=== PATIENT | male | born 1965 | race Caucasian/White ===

== ENCOUNTER → 2022-02-07 10:53 | Outpatient (CLI) | payer OTHER, SELFPAY ==
--- NOTE | 2022-02-07 10:55 | DI.RAD.S_ITS ---
PROCEDURE: XR LUMBAR SPINE MIN 4V INDICATIONS: BACK PAIN TECHNIQUE: 5 views of the lumbar spine were acquired, including bilateral oblique views. COMPARISON: [facility], MR, MR LUMBAR SPINE WITHOUT CONTRAST, 11/08/2021, 9:42. FINDINGS: Bones: 5 nonrib-bearing vertebrae are present. There is normal bony alignment. No vertebral body compression fractures. No suspicious bony lesions. Set hypertrophy throughout the mid Soft tissues: Overlying bowel gas pattern is normal. No suspicious soft tissue calcifications. IMPRESSION: Multilevel degenerative disc and facet disease. No acute fracture. No osseous lesion. If symptoms and/or clinical suspicion for pathology persist, further assessment with repeat, or advanced imaging (e.g., CT, MRI, or bone scan) may be helpful for further assessment. Dictated by: Sho Santana M.D. on 02/07/2022 at 13:33 Approved by: Sho Santana M.D. on 02/07/2022 at 13:34
== END ==
PROVIDERS: Family Provider Family Medicine; PCP Family Medicine; Referring Provider Physical Medicine & Rehabilitation; Visit Provider Physical Medicine & Rehabilitation
DX: M51.36 Other intervertebral disc degeneration, lumbar region (principal); M54.9 Dorsalgia, unspecified
CPT/HCPCS: 72110

== ENCOUNTER 2022-02-13 08:10 | Outpatient (CLI) | payer OTHER, SELFPAY ==
[2022-02-13] VITALS (8 sets, daily range): BP systolic 129–153; BP diastolic 84–99; PULSE 57–72; RESP 11–20; TEMP 37; O2SAT 98–100
--- NOTE | 2022-02-13 08:11 | DI.RAD.S_ITS ---
PROCEDURE: PAIN L/S TRANSFORAM INJECT MARK COMPARISON: None. INDICATIONS: SPONDYLOSIS FINDINGS: Access needle tips at the bilateral L4-L5 neural foramina. Injection of small amount of iodinated contrast material through the axis needle demonstrates position of the tips in extra thecal space. IMPRESSION: Access needle tips at bilateral L4-L5 neural foramina for transforaminal epidural steroid injection. Dictated by: Daphne Mccoy MD, PhD on 02/13/2022 at 11:48 Approved by: Daphne Mccoy MD, PhD on 02/13/2022 at 11:50
[2022-02-13 08:41] LABS: COVID19 -Nasal RAPID Negative (Negative)
[2022-02-13] MEDS: MIDAZOLAM 2 MG/2 ML VIAL IV (09:30)
[2022-02-13] MEDS: IOPAMIDOL 15 ML VIAL 3 ML INJ (09:35)
[2022-02-13] MEDS: BETAMETHASONE 30 MG/5 ML MDV 6 MG INJ (09:35)
[2022-02-13] MEDS: BUPIVACAINE 0.25% (PF) VIAL 2 ML INJ (09:35)
[2022-02-13] MEDS: DEXAMETHASONE 10 MG/ML VIAL 20 MG INJ (09:36)
--- NOTE | 2022-02-13 09:53 | PM.PROC.IR.1 ---
Date/Time/Diagnoses Date of procedure: 02/13/22 Time of procedure: 09:53 Pre-procedure diagnosis: 1. FORAMINAL STENOSIS WITH LE SYMPTOMS Procedure Notes Procedure: 1. FLUOROSCOPICALLY GUIDED CONTRAST CONTROLLED TRANSFORAMINAL EPIDURAL STEROID INJECTION - BILATERAL L4/5 TFESI Indications: Anam is referred by Dr. Mallory for treatment of Foraminal Stenosis with bilateral LE Symptoms Physician: Vu Thorpe Total Fluoroscopy time (seconds): 17 Total sedation minutes: 17 Complications: none Procedure in detail & Post-procedure care: FINDINGS Foraminal Nerve Root Compression secondary to disc disease and facet hypertrophy DESCRIPTION OF PROCEDURE Following review of allergy and review of potential side effects and complications, including, but not necessarily limited to, infection, allergic reaction, local tissue breakdown, stroke, temporary or permanent nerve injury, paralysis, and possible , the patient indicated that the patient understood and agreed to proceed. An informed consent document was signed by the patient, witnessed by a nurse, and placed in the patient's chart. Additionally, other treatment options including medications, modalities, and physical therapy were reviewed with the patient. After review of previous anaesthesic history and IV conscious sedation the patient was deemed safe to proceed with today?s procedure with IV conscious sedation as ASA class II designation. Safety time-out was performed to confirm patient ID, procedure to be performed and site of procedure. IV sedation was accomplished with a combination of 2mg of Versed was administered by the RN after DO order, titrated to patient comfort during the course of the procedure while the patient remained responsive to all verbal commands In the prone position following sterile prep and drape of the lumbar region, the right L4/5 posterior neuroforamen was identified fluoroscopically. The skin was anesthetized via a 25-gauge 1.5-inch needle with 1% lidocaine solution. At this point, a 25-gauge 3.5-inch spinal needle was atraumatically introduced and advanced under fluoroscopic guidance through the posterior right L4/5 neuroforamen to approximately the anterior aspect of the canal. Depth was confirmed on lateral view. Following negative aspiration, injection of approximately 1.5cc of Isovue 200 under live fluoroscopy in the AP view confirmed excellent flow along the nerve root, into the epidural space without vascular or intrathecal uptake observed Radiological data, including multiple fluoroscopic views of the lumbosacral spine, reveal a spinal needle at the right L4/5 posterior neuroforamen. Subsequent views show flow of contrast material flowing superiorly and inferiorly along the nerve root confirming epidural flow. Subsequently, a test dose of 1.5cc of 1% lidocaine solution was administered and patient was observed for two minutes for signs or symptoms of complications, including abdominal pain, shortness of breath, bilateral upper or lower extremity weakness, nausea and vomiting, prior to steroid injection. At this point, a total of 3cc or 20mg of dexamethasone and 6mg betamethasone was injected without incident. Attention was then refocused to the left L4/5 level where the identical procedure was replicated. The procedure tolerated the procedure well without signs or symptoms of complications prior to transfer to the recovery area continued monitoring without incident. The patient was then transferred to the recovery area where they were observed for an appropriate time after the injection. The patient reported a VAS score of 7 prior to the procedure and a post-procedure VAS of 0. POST OP INSTRUCTIONS The patient was provided a Pain Log to continue to record their response to the target-specific procedure prior to follow-up visit with their referring physician. Additionally, specific post-injection care instructions and a contact number to our office were provided if concerns arise regarding possible complications associated with the procedure are suspected.
== END 2022-02-13 10:10 | disposition home or self-care (01) ==
LOC: RAD 08:11
PROVIDERS: Family Provider Family Medicine; PCP Family Medicine; Referring Provider Physical Medicine & Rehabilitation; Visit Provider Physical Medicine & Rehabilitation
DX: M48.061 Spinal stenosis, lumbar region without neurogenic claudication (principal); M51.16 Intervertebral disc disorders with radiculopathy, lumbar region; Z20.822 Contact with and (suspected) exposure to COVID-19
CPT/HCPCS: 64483; 87635; 99152; J0702; J1100; J2250

== ENCOUNTER 2022-07-31 08:15 | Outpatient (CLI) | payer OTHER, SELFPAY ==
[2022-07-31] VITALS (8 sets, daily range): BP systolic 120–132; BP diastolic 76–100; PULSE 75–88; RESP 11–20; TEMP 36.8; O2SAT 95–99
--- NOTE | 2022-07-31 09:00 | DI.RAD.S_ITS ---
PROCEDURE: PAIN L/S FACET INJ/BLK 1ST MARK COMPARISON: None. INDICATIONS: SPONDYLOSIS FINDINGS: Fluoroscopic images demonstrating bilateral needle placement at L3, L4 and L5 with contrast injection is noted. No visualized fractures. IMPRESSION: Needle placement as above. Dictated by: Payal Meade M.D. on 07/31/2022 at 13:12 Approved by: Payal Meade M.D. on 07/31/2022 at 13:13
[2022-07-31] MEDS: MIDAZOLAM 2 MG/2 ML VIAL IV (09:16)
[2022-07-31] MEDS: LIDOCAINE 1% 20 ML 5 ML INJ (09:19)
[2022-07-31] MEDS: IOPAMIDOL 15 ML VIAL 3 ML INJ (09:19)
[2022-07-31] MEDS: BUPIVACAINE 0.5% MDV 5 ML SUBCUT (09:20)
--- NOTE | 2022-07-31 09:32 | PM.PROC.IR.1 ---
Date/Time/Diagnoses Date of procedure: 07/31/22 Time of procedure: 09:32 Pre-procedure diagnosis: FACET ARTHROPATHY Post-procedure diagnosis: same Procedure Notes Procedure: 1. BILATERAL L3, L4 AND L5 DIAGNOSTIC MB BLOCKS Indications: Anam is referred by Dr. Mallory for treatment of Bilateral Axial LBP. Physician: Vu Thorpe Total Fluoroscopy time (seconds): 12 Total sedation minutes: 13 Complications: none Procedure in detail & Post-procedure care: DESCRIPTION OF PROCEDURE Fluoroscopically guided, contrast-controlled bilateral L3, L4 AND L5 medial branch blocks with 0.5cc of 0.5% Marcaine. Following review of allergy and review of potential side effects and complications, including, but not necessarily limited to, infection, allergic reaction, local tissue breakdown, nerve injury, paralysis, stroke and possible , the patient indicated that the patient understood and agreed to proceed. An informed consent document was signed by the patient, witnessed by a nurse, and placed in the patient's chart. After review of previous anaesthesic history and IV conscious sedation the patient was deemed safe to proceed with today's procedure with IV conscious sedation as ASA class II designation. Safety time-out was performed to confirm patient ID, procedure to be performed and site of procedure. IV sedation was accomplished with a combination of 2mg of Versed was administered by the RN after DO order, titrated to patient comfort during the course of the procedure while the patient remained responsive to all verbal commands In the prone position, following sterile prep and drape of the lumbar region, the right L3, L4 AND L5 anatomical location of the medial branch of the dorsal ramus was identified fluoroscopically. Subsequently an anesthetic skin wheal using 1% lidocaine solution was initiated at each of the anatomical spots. Subsequently then a 22-gauge 3.5-inch spinal needle was atraumatically introduced and advanced under fluoroscopic guidance at each of the corresponding sites at the right L3, L4 and L5 MB. After negative aspiration, 0.2cc of Isovue 200 was injected, confirming placement without vascular or intrathecal uptake. Subsequently then 0.5cc of 0.5% Marcaine solution was injected at each of the corresponding sites at the right L3, L4 and L5 medial branch locations. The identical procedure was replicated on the left. The patient tolerated the procedure well without signs or symptoms of complications. The patient tolerated the procedure well without signs or symptoms of complications prior to transfer to the recovery area continued monitoring without incident. Post-procedure, the patient was monitored initiating provocative activities to measure the amount of relief from block of the facetogenic pain. The patient reported a VAS of 7 prior to the procedure and a post-procedure VAS of 1. It has been a pleasure to assist in the diagnostic and therapeutic care of your patient. POST OP INSTRUCTIONS The patient was provided with a Pain Log to complete over the next several hours and subsequent days prior to the patient's follow up with the ordering physician. 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 The patient is aware, was provided, once again, with a Pain Log and will follow up with the referring physician for review and clinical correlation
== END 2022-07-31 09:48 | disposition home or self-care (01) ==
LOC: RAD 08:16
PROVIDERS: Family Provider Family Medicine; PCP Family Medicine; Referring Provider Physical Medicine & Rehabilitation; Visit Provider Physical Medicine & Rehabilitation
DX: M47.816 Spondylosis without myelopathy or radiculopathy, lumbar region (principal)
CPT/HCPCS: 64493; 64494; 99152; J2250

== ENCOUNTER 2022-12-04 08:14 | Outpatient (CLI) | payer OTHER, SELFPAY ==
[2022-12-04] VITALS (9 sets, daily range): BP systolic 119–143; BP diastolic 69–92; PULSE 73–86; RESP 12–23; TEMP 37.1; O2SAT 94–99
--- NOTE | 2022-12-04 08:15 | DI.RAD.S_ITS ---
PROCEDURE: PAIN L/S TRANSFORAMINAL INJECT INDICATIONS: SPONDYLOSIS COMPARISON: None. FINDINGS: Fluoroscopic spot filming was performed to verify placement of spinal needles at the L4-5 level(s), as labeled on the films. Appropriate location(s) of the needle tip(s) was confirmed by injection of iodinated contrast. IMPRESSION: Fluoroscopic guidance Approved by: Anam Diaz M.D. on 12/04/2022 at 19:33
[2022-12-04] MEDS: MIDAZOLAM 2 MG/2 ML VIAL IV (08:56)
[2022-12-04] MEDS: DEXAMETHASONE 10 MG/ML VIAL 20 MG INJ (09:01)
[2022-12-04] MEDS: IOPAMIDOL 15 ML VIAL 3 ML INJ (09:01)
[2022-12-04] MEDS: BUPIVACAINE 0.25% (PF) VIAL 2 ML INJ (09:01)
[2022-12-04] MEDS: BETAMETHASONE 30 MG/5 ML MDV 6 MG INJ (09:01)
--- NOTE | 2022-12-04 09:05 | P.PCN_ITS ---
Date/Time/Diagnoses Date of procedure: 12/04/22 Time of procedure: 09:05 Pre-procedure diagnosis: 1. FORAMINAL STENOSIS WITH LE SYMPTOMS Post-procedure diagnosis: same Procedure Notes Procedure: 1. FLUOROSCOPICALLY GUIDED CONTRAST CONTROLLED TRANSFORAMINAL EPIDURAL STEROID INJECTION - LEFT L4/5 Indications: Anam is referred by Dr. Mallory for treatment of Foraminal Stenosis with Left LE Symptoms Physician: Vu Thorpe Total Fluoroscopy time (seconds): 4 Total sedation minutes: 6 Complications: none Procedure in detail & Post-procedure care: FINDINGS Foraminal Nerve Root Compression secondary to disc disease and facet hypertrophy DESCRIPTION OF PROCEDURE Following review of allergy and review of potential side effects and complications, including, but not necessarily limited to, infection, allergic reaction, local tissue breakdown, stroke, temporary or permanent nerve injury, paralysis, and possible , the patient indicated that the patient understood and agreed to proceed. An informed consent document was signed by the patient, witnessed by a nurse, and placed in the patient's chart. Additionally, other treatment options including medications, modalities, and physical therapy were reviewed with the patient. After review of previous anaesthesic history and IV conscious sedation the patient was deemed safe to proceed with today?s procedure with IV conscious sedation as ASA class II designation. Safety time-out was performed to confirm patient ID, procedure to be performed and site of procedure. IV sedation was accomplished with a combination of 2mg of Versed administered by the RN after DO order, titrated to patient comfort during the course of the procedure while the patient remained responsive to all verbal commands In the prone position following sterile prep and drape of the lumbar region, the left L4/5 posterior neuroforamen was identified fluoroscopically. The skin was anesthetized via a 25-gauge 1.5-inch needle with 1% lidocaine solution. At this point, a 25-gauge 3.5-inch spinal needle was atraumatically introduced and advanced under fluoroscopic guidance through the posterior left L4/5 neuroforamen to approximately the anterior aspect of the canal. Depth was confirmed on lateral view. Following negative aspiration, injection of approximately 1.5cc of Isovue 200 under live fluoroscopy in the AP view confirmed excellent flow along the nerve root, into the epidural space without vascular or intrathecal uptake observed Radiological data, including multiple fluoroscopic views of the lumbosacral spine, reveal a spinal needle at the left L4/5 posterior neuroforamen. Subsequent views show flow of contrast material flowing superiorly and inferiorly along the nerve root confirming epidural flow. Subsequently, a test dose of 1.5 cc of 1% lidocaine solution was administered and patient was observed for two minutes for signs or symptoms of complications, including abdominal pain, shortness of breath, bilateral upper or lower extremity weakness, nausea and vomiting, prior to steroid injection. At this point, a total of 3cc or 20mg of dexamethasone and 6mg of betamethasone was injected without incident. The procedure tolerated the procedure well without signs or symptoms of complications prior to transfer to the recovery area continued monitoring without incident. The patient was then transferred to the recovery area where they were observed for an appropriate time after the injection. The patient reported a VAS score of 7 prior to the procedure and a post- procedure VAS of 0. POST OP INSTRUCTIONS The patient was provided a Pain Log to continue to record their response to the target-specific procedure prior to follow-up visit with their referring physician. Additionally, specific post-injection care instructions and a contact number to our office were provided if concerns arise regarding possible complications associated with the procedure are suspected.
== END 2022-12-04 09:33 | disposition home or self-care (01) ==
LOC: RAD 08:14
PROVIDERS: Family Provider Family Medicine; PCP Family Medicine; Referring Provider Physical Medicine & Rehabilitation; Visit Provider Physical Medicine & Rehabilitation
DX: M48.061 Spinal stenosis, lumbar region without neurogenic claudication (principal); M51.16 Intervertebral disc disorders with radiculopathy, lumbar region
CPT/HCPCS: 64483; J0702; J1100; J2250; J3490

== ENCOUNTER 2023-06-30 03:04 | Emergency (ER) | payer OTHER, SELFPAY ==
[2023-06-30 03:05] VITALS: BP 191/112; PULSE 76; RESP 18; TEMP 36.6; O2SAT 97; BMI 32.8
[2023-06-30 03:11] VITALS: PULSE 74; O2SAT 99
--- NOTE | 2023-06-30 03:11 | ED_ITS ---
HPI - Abdominal Pain General Chief Complaint: Abdominal Pain Stated Complaint: gallbladder or appendix pain Time Seen by Provider: 06/30/23 03:10 History of Present Illness HPI narrative: Patient 57-year-old male without significant past medical history presenting today with sudden onset of right-sided back pain. He says it woke him from sleep. It is radiating down to his abdomen. He is felt sweaty and nauseous. He was in his normal state of health earlier today he would a fast food hamburger. He denies any chest pain. No prior history of kidney stones. He is not noted any blood in his urine. He feels constipated at times. Related Data Home Medications Medication Instructions Recorded Confirmed lamotrigine 100 mg tablet 100 mg PO DAILY 02/07/22 10/20/22 rabeprazole 20 mg tablet,delayed tab PO 02/07/22 10/20/22 release clonazepam 0.5 mg tablet 0.5 mg PO BEDTIME PRN 10/20/22 10/20/22 Previous Rx's Medication Instructions Recorded hydrocodone 5 mg-acetaminophen 325 1 tab PO Q6H PRN pain #10 tabs 06/30/23 mg tablet ondansetron 4 mg disintegrating 4 mg PO Q8H PRN nausea and 06/30/23 tablet vomiting #10 tabs Allergies Allergy/AdvReac Type Severity Reaction Status Date / Time codeine Allergy Intermediate Gastrointestinal Verified 10/20/22 08:56 Upset Latex, Natural Rubber Allergy Intermediate Rash Verified 10/20/22 08:56 celecoxib [From Celebrex] AdvReac Mild Anxiety Verified 10/20/22 09:21 Review of Systems Review of Systems ROS Unobtainable: All systems reviewed & are unremarkable except as noted in HPI and below Patient History Medical History Facet arthropathy, lumbar Herniated nucleus pulposus, L4-5 Lumbosacral radiculopathy at L5 Surgical History History of knee surgery Family History Unknown No pertinent family history Social History Smoking Status: Former smoker Smoking Status: Former smoker Exam Initial Vital Signs Initial Vital Signs: Vital Signs Temperature 97.9 F 06/30/23 03:05 Pulse Rate 76 06/30/23 03:05 Respiratory Rate 18 06/30/23 03:05 Blood Pressure 191/112 H 06/30/23 03:05 Pulse Oximetry 97 06/30/23 03:05 Oxygen Delivery Method Room Air 06/30/23 03:05 GENERAL: [Alert 57-year-old male appears comfortable HEENT: Head atraumatic,EOMI, pupils reactive, face symmetric, moist mucous membranes CARDIOVASCULAR: Regular rate and rhythm without murmurs, rubs or gallops. RESPIRATORY: Breath sounds equal bilaterally, no wheezes rales or rhonchi. ABDOMEN: Soft, no right lower quadrant tenderness negative Lucia sign no epigastric pain : Mild right CVA tenderness EXTREMITIES: Normal range of motion, no clubbing or edema. Neurovascularly intact NEUROLOGICAL: Alert and oriented x4.Normal gait and speech. SKIN: Warm, dry, no laceration, no petechiae, no rashes or lesions. Course Orders Ordered: Discontinued Medications Hydrocodone Bitart/Acetaminophen (Hydrocodone/Acet 5/325 Prepack) [facility] Stop: 06/30/23 04:41 Last Admin: 06/30/23 04:45 Dose: 1 bottle Documented By: RITESH Ketorolac Tromethamine (Ketorolac 30 Mg/Ml Vial) 15 mg IV NOW ONE Stop: 06/30/23 03:11 Last Admin: 06/30/23 03:23 Dose: 15 mg Documented By: KIERRA Ondansetron HCl (Ondansetron 4 Mg/2 Ml Inj) 4 mg IV NOW ONE Stop: 06/30/23 03:11 Last Admin: 06/30/23 03:22 Dose: 4 mg Documented By: KIERRA Ondansetron HCl (Ondansetron 4 Mg Odt Prepack) 1 bottle MISC SEEINSTR ONE Stop: 06/30/23 04:41 Last Admin: 06/30/23 04:45 Dose: 1 bottle Documented By: RITESH Ondansetron HCl (Ondansetron 4 Mg/2 Ml Inj) 4 mg IV NOW ONE Stop: 06/30/23 04:41 Last Admin: 06/30/23 04:45 Dose: 4 mg Documented By: RITESH Vital Signs Vital signs: Vital Signs - 8 hr 06/30/23 03:05 06/30/23 03:11 06/30/23 03:30 Temperature 97.9 F Pulse Rate 76 74 Respiratory Rate 18 Blood Pressure 191/112 H 196/126 H Pulse Oximetry 97 99 Oxygen Delivery Method Room Air 06/30/23 03:30 06/30/23 03:36 06/30/23 03:36 Temperature Pulse Rate 74 71 Respiratory Rate Blood Pressure 180/106 H 180/106 H Pulse Oximetry 99 98 Oxygen Delivery Method MDM - Abdominal Pain Lab Data 06/30/23 03:10 06/30/23 03:10 Labs: Lab Results 06/30/23 06/30/23 Range/Units 03:10 03:49 WBC 7.8 (4.5-11.0) X10^3/uL RBC 4.61 (4.5-5.9) X10^6/uL Hgb 13.7 (13.5-17.5) g/dL Hct 39.5 L (41-53) % MCV 85.8 (80-100) fL MCH 29.7 (26-34) PG MCHC 34.6 (30-36) % RDW 13.4 (11.6-14.8) % Plt Count 312 (150-400) X10^3/uL Neut % (Auto) 55.4 (50-75) % Lymph % (Auto) 32.5 (25-40) % Clinch % (Auto) 8.2 (3-14) % Eos % (Auto) 3.6 (2-4) % Baso % (Auto) 0.3 (0-2) % Neut # (Auto) 4300 (9047-9912) /uL Lymph # (Auto) 2500 (6206-8925) /uL Clinch # (Auto) 600 (0-900) /uL Eos # (Auto) 300 (0-450) /uL Baso # (Auto) 0 (0-100) /uL Sodium 140 (137-145) mmol/L Potassium 3.6 (3.4-5.1) mmol/L Chloride 101 (98-107) mmol/L Carbon Dioxide 33 H (22-32) mmol/L BUN 18 (9-20) mg/dL Creatinine 1.28 H (0.66-1.25) mg/dL Estimated GFR > 60 (>60) mL/min BUN/Creatinine Ratio 14.1 (6-22) Glucose 128 H (70-100) mg/dL Calcium 9.2 (8.4-10.2) mg/dL Total Bilirubin 0.3 (0.2-1.3) mg/dL AST 27 (17-59) IU/L ALT 29 (<50) IU/L Alkaline Phosphatase 91 (38-126) U/L Total Protein 7.4 (6.3-8.2) g/dL Albumin 4.0 (3.5-5.0) g/dL Globulin 3.4 (1.7-4.1) g/dL Albumin/Globulin Ratio 1.2 (1.0-2.8) Lipase 80 (23-300) U/L Urine RBC 10-30/hpf H (0-5/HPF) Urine WBC 0-1/hpf (0-5/HPF) Ur Squamous Epith Cells 0-1 /hpf (0-5/HPF) Urine Bacteria Occasional (0-1) (None) Urine Mucus 1+ H (Negative) Ur Culture Indicated? Cult not indicated Point of care testing: Urine Dip Bedside Urine Glucose Negative Bedside Urine Bilirubin - Negative Bedside Urine Ketone - Negative Urine Specific [place] 1.030 Bedside Urine Occult Blood + Bedside Urine pH 6.0 Bedside Urine Protein +/- 15 Bedside Urine Urobilinogen - Negative Bedside Urine Nitrite - Negative Bedside Urine Leukocytes - Negative Esterase Imaging Data CT scan - abdomen/pelvis: Radiologist's Impression: Preliminary report moderate right hydronephrosis and perinephric perirectal inflammatory changes with is obstructing 5 mm proximal ureteral calculus. Ill- defined stranding noted at mesentery yet subcentimeter mesenteric nodes. Nonspecific finding MDM Narrative Medical decision making narrative: Patient 57-year-old male presents today with sudden onset right-sided flank pain. He gets diaphoretic nauseous and pain radiates around to his abdomen. Consistent with a kidney stone which CT confirms as 5 mm. His creatinine is 1.28 but he has no priors to compare. No evidence of UTI. He is overall feeling better with Toradol and Zofran but 1 another dose of Zofran. Discussion of how to manage at home. No need for admission. Discharge Plan Departure Patient Disposition: Home Clinical Impression: Calculus of kidney Instructions: DI for Kidney Stones Activity Restrictions/Additional Instructions: *You have been diagnosed with kidney stone *What to do: At this time you have a kidney stone. Do not get dehydrated continue to drink fluids. *Continue to take medications as directed--> SENT TO [facility] Zofran 4 mg every 8 hours if needed for nausea or vomiting Motrin 600 mg every 6 hours for evqd-ux-favalddt pain Lyerly 1 tablet every 6 hours if needed for severe pain *Follow up with your primary care provider in 2-3 days or call [phone] *Return to ER if you should have increasing pain inability to tolerate fluids fever [or] any new, worsening or concerning symptoms CONTROLLED SUBSTANCE DISCHARGE (Narcotoic/benzodiazepine/Flexeril/Phenergan) 1. You have been prescribed narcotic medications, it does have acetaminophen/Tylenol/paracetamol in it, DO NOT TAKE MORE THAN 4,00mg in 24 hours of Tylenol. TRAMADOL DOES NOT CONTAIN TYLENOL 2. Please understand that we cannot provide further refills of narcotics, benzodiazepines or controlled substances through the ED and her pain management will need to be through your provider. 3. While on these medications you cannot drive or operate heavy machinery. 4. You cannot sign legal documents or perform any duties such as this. 5. As long as you're taking opiate pain medications he should also be taking a stool softener such as Colace, Dulcolax, MiraLAX or prune juice, to help avoid constipation. Prescriptions: New hydrocodone-acetaminophen 5-325 mg tablet 1 tab PO Q6H PRN (Reason: pain) Qty: 10 0RF ondansetron 4 mg tablet,disintegrating 4 mg PO Q8H PRN (Reason: nausea and vomiting) Qty: 10 0RF No Action clonazepam 0.5 mg tablet 0.5 mg PO BEDTIME PRN rabeprazole 20 mg tablet,delayed release (DR/EC) PO lamotrigine 100 mg tablet 100 mg PO DAILY Referrals: Mat Mallory MD [Primary Care Provider] - Stand Alone Forms: Patient Portal/API
[2023-06-30] MEDS: ONDANSETRON 4 MG/2 ML INJ IV ×2 (03:22→04:45)
--- NOTE | 2023-06-30 03:22 | DI.CT.S_ITS ---
PROCEDURE: CT ABDOMEN PELVIS W CON INDICATIONS: right flank pain TECHNIQUE: After the administration of IV contrast, axial sections were acquired from the lung bases to the pubic symphysis. Coronal and sagittal reformats were performed. For radiation dose reduction, the following was used: automated exposure control, adjustment of mA and/or kV according to patient size. COMPARISON: [facility], CR, XR LUMBAR SPINE MIN 4V, 02/07/2022, 10:54. FINDINGS: Image quality: Excellent. Lung bases: Unremarkable. Heart: No significant findings. ABDOMEN: Liver: Numerous well-circumscribed hepatic cysts. A larger cyst in the right liver measures 4 cm. Gallbladder: Within normal limits. Biliary ducts: Unremarkable. Pancreas: Enhances uniformly. Spleen: No splenomegaly. Adrenal Glands: No nodule. Kidneys and Ureters: Moderate right hydronephrosis. Obstructing calculus in the proximal right ureter measuring 0.5 cm, (2/43). 595 Hounsfield units. There is right kidney perinephric stranding. No left hydronephrosis. No additional kidney stones seen. No solid renal mass. Stomach and Bowel: Stomach, small bowel loops, and colon are unremarkable. Normal appendix. Peritoneum: No abnormal intraperitoneal fluid. No free air. Ventral Wall: No hernia. Abdominal Nodes: No retroperitoneal or mesenteric adenopathy by size criteria. Minimal haziness in the mesenteric fat. Tiny mesenteric lymph nodes are felt to be within normal limits, (2/44). Vessels: Aorta and inferior vena cava are normal in size. PELVIS: Pelvic Organs: Unremarkable. Bladder: Within normal limits. No bladder stone. Pelvic Nodes: No enlarged lymph nodes. Miscellaneous: No inguinal hernias are seen. Bones: No suspicious lesion. IMPRESSION: 1. Moderate right hydronephrosis. Obstructing calculus in the proximal right ureter measuring 0.5 cm. 2. No additional kidney stones identified. No significant discrepancy with the overnight preliminary interpretation. Dictated by: Shiv Purvis M.D. on 06/30/2023 at 8:22 Approved by: Shiv Purvis M.D. on 06/30/2023 at 8:31
[2023-06-30 03:23] LABS: Add Manual Diff / Slide Review NO; Basophils Absolute Auto 0 /uL (0-100); Basophils Percent Auto 0.3 % (0-2); Eosinophils Absolute Auto 300 /uL (0-450); Eosinophils Percent Auto 3.6 % (2-4); Hematocrit 39.5 % (41-53); Hemoglobin 13.7 g/dL (13.5-17.5); Lymphocytes Absolute Auto 2500 /uL (1100-4500); Lymphocytes Percent Auto 32.5 % (25-40); Mean Corpuscular HGB Conc 34.6 % (30-36); Mean Corpuscular Hemoglobin 29.7 PG (26-34); Mean Corpuscular Volume 85.8 fL (80-100); Monocytes Absolute Auto 600 /uL (0-900); Monocytes Percent Auto 8.2 % (3-14); Neutrophils Absolute Auto 4300 /uL (1500-7000); Neutrophils Percent Auto 55.4 % (50-75); Platelet Count 312 X10^3/uL (150-400); Red Blood Cell Count 4.61 X10^6/uL (4.5-5.9); Red Cell Distribution Width 13.4 % (11.6-14.8); White Blood Cell Count 7.8 X10^3/uL (4.5-11.0)
[2023-06-30] MEDS: KETOROLAC 30 MG/ML VIAL 15 MG IV (03:23)
[2023-06-30 03:30] VITALS: BP 180/106; BP 196/126; PULSE 74; O2SAT 99
[2023-06-30 03:36] VITALS: BP 180/106; PULSE 71; O2SAT 98
[2023-06-30 03:36] LABS: Alanine Aminotransferase 29 IU/L (<50); Albumin Globulin Ratio 1.2 (1.0-2.8); Alkaline Phosphatase 91 U/L (38-126); Aspartate Aminotransferase 27 IU/L (17-59); BUN Creatinine Ratio 14.1 (6-22); Bilirubin Total 0.3 mg/dL (0.2-1.3); Blood Urea Nitrogen 18 mg/dL (9-20); Calcium 9.2 mg/dL (8.4-10.2); Carbon Dioxide 33 mmol/L (22-32); Chloride 101 mmol/L (98-107); Estimated Glomerular Filt Rate > 60 mL/min (>60); Globulin 3.4 g/dL (1.7-4.1); Glucose 128 mg/dL (70-100); HEMOLYSIS < 15 (0-50); Lipase 80 U/L (23-300); Potassium 3.6 mmol/L (3.4-5.1); Sodium 140 mmol/L (137-145); Total Protein 7.4 g/dL (6.3-8.2)
[2023-06-30 04:20] LABS: Bacteria Urine Occasional (0-1); Culture Indicated Urine Cult Not Indicated; Mucus Urine 1+ (Negative); RBC Urine 10-30/HPF (0-5/HPF); Squamous Epithelial Cell Urine 0-1 /HPF (0-5/HPF); WBC Urine 0-1/HPF (0-5/HPF)
[2023-06-30] MEDS: ONDANSETRON 4 MG ODT PREPACK 1 BOTTLE MISC (04:45)
[2023-06-30] MEDS: HYDROCODONE/ACET 5/325 PREPACK 1 BOTTLE MISC (04:45)
== END 2023-06-30 04:45 | disposition home or self-care (01) ==
PROVIDERS: Emergency Provider Emergency Medicine; Family Provider Family Medicine; PCP Family Medicine
DX: N20.0 Calculus of kidney (principal)
CPT/HCPCS: 36415; 74177; 80053; 81003; 81015; 83690; 85025; 96374; 96375; 96376; 99284; J1885; J2405; Q9967

== ENCOUNTER 2023-08-13 08:18 | Outpatient (CLI) | payer OTHER, SELFPAY ==
[2023-08-13] VITALS (9 sets, daily range): BP systolic 117–160; BP diastolic 54–87; PULSE 74–82; RESP 12–19; TEMP 36.9; O2SAT 96–98
--- NOTE | 2023-08-13 08:19 | DI.RAD.S_ITS ---
PROCEDURE: PAIN L INTERLAMINAR/CAUDAL INJ INDICATIONS: SPONDYLOSIS COMPARISON: None. FINDINGS: Fluoroscopic spot filming was performed to verify placement of spinal needles at the L4-5 level(s), as labeled on the films. Appropriate location(s) of the needle tip(s) was confirmed by injection of iodinated contrast. IMPRESSION: Fluoroscopic guidance Approved by: Anam Diaz M.D. on 08/13/2023 at 19:53
[2023-08-13] MEDS: MIDAZOLAM 2 MG/2 ML VIAL IV (08:47)
[2023-08-13] MEDS: iopamidoL 15 ML VIAL 3 ML INJ (08:54)
[2023-08-13] MEDS: BETAMETHASONE 30 MG/5 ML MDV 6 MG INJ (08:55)
[2023-08-13] MEDS: DEXAMETHASONE 10 MG/ML VIAL INJ (08:55)
[2023-08-13] MEDS: BUPIVACAINE 0.25% (PF) VIAL 2 ML INJ (08:55)
--- NOTE | 2023-08-13 09:05 | P.PCN_ITS ---
Date/Time/Diagnoses Date of procedure: 08/13/23 Time of procedure: 09:05 Pre-procedure diagnosis: 1. HNP WITH RADICULAR FEATURES 2. MULTILEVEL CENTRAL STENOSIS Post-procedure diagnosis: same Procedure Notes Procedure: 1. FLUOROSCOPICALLY GUIDED CONTRAST CONTROLLED INTERLAMINAR EPIDURAL STEROID INJECTION -L4/5 Indications: Anam is referred by Dr. Mallory for treatment of Bilateral Foraminal Stenosis R>L LE symptoms. Physician: Vu Thorpe Total Fluoroscopy time (seconds): 5 Total sedation minutes: 12 Complications: none Procedure in detail & Post-procedure care: FINDINGS Multilevel Central Spinal Stenosis with Nerve Root Compression DESCRIPTION OF PROCEDURE Fluoroscopically guided, contrast-controlled L4/5 translaminar epidural steroid injection. Following review of allergy and review of potential side effects and complications, including, but not necessarily limited to, infection, allergic reaction, local tissue breakdown, temporary as well as permanent nerve injury, paralysis, stroke and possible , the patient indicated that the patient understood and agreed to proceed. An informed consent document was signed by the patient, witnessed by a nurse, and placed in the patient's chart. Additionally, other treatment options including modalities, medications, and physical therapy were reviewed with the patient. After review of previous anaesthesic history and IV conscious sedation the patient was deemed safe to proceed with today?s procedure with IV conscious sedation as ASA class II designation. Safety time-out was performed to confirm patient ID, procedure to be performed and site of procedure. IV sedation was accomplished with a combination of 2mg of Versed was administered by the RN after DO order, titrated to patient comfort during the course of the procedure while the patient remained responsive to all verbal commands In the prone position, following sterile prep and drape of the lumbar region, the L4/5 translaminar space was identified fluoroscopically. The skin was anesthetized via a 25-gauge, 1.5inch needle with 1% lidocaine solution. At this point, a 22-gauge short bevel spinal needle was atraumatically introduced and advanced under fluoroscopic guidance into the region of the L4/5 translaminar space. Depth was confirmed on lateral view. Radiological data, including multiple fluoroscopic views of the lumbar spine, r eveal a spinal needle at the L4/5 translaminar space. Lateral views then show placement of the needle in the epidural space. Subsequent views show contrast material flowing superiorly and inferiorly in the epidural space. No vascular or intrathecal uptake is observed. At this point, using loss of resistance technique with saline and air, the epidural space was entered. This was confirmed following negative aspiration with injection of approximately 1.5cc of Isovue 200, showing excellent epidural flow without vascular or intrathecal uptake. At this point, 1cc of 1% lidocaine solution combined with 2cc or 10mg of dexamethasone and 6mg betamethasone was injected without incident. The patient tolerated the procedure well without signs or symptoms of complications prior to transfer to the recovery area continued monitoring without incident. The patient was then transferred to the recovery area where they were observed for an appropriate period of time after the injection. The patient reported a VAS score of 7 prior to the procedure and a post- procedure VAS of 1. POST OP INSTRUCTIONS The patient was provided a Pain Log to continue to record their response to the target-specific procedure prior to follow-up visit with their referring physician. Additionally, specific post-injection care instructions and a contact number to our office were provided if concerns arise regarding possible complications associated with the procedure are suspected.
== END 2023-08-13 09:20 | disposition home or self-care (01) ==
LOC: RAD 08:18
PROVIDERS: Family Provider Family Medicine; PCP Family Medicine; Referring Provider Physical Medicine & Rehabilitation; Visit Provider Physical Medicine & Rehabilitation
DX: M51.16 Intervertebral disc disorders with radiculopathy, lumbar region (principal); M48.061 Spinal stenosis, lumbar region without neurogenic claudication
CPT/HCPCS: 62323; 99152; J0702; J1100; J2250; J3490

== ENCOUNTER 2023-12-17 08:22 | Outpatient (CLI) | payer OTHER, SELFPAY ==
[2023-12-17] VITALS (7 sets, daily range): BP systolic 111–149; BP diastolic 60–83; PULSE 63–81; RESP 12–16; TEMP 36.4; O2SAT 96–100
--- NOTE | 2023-12-17 08:51 | DI.RAD.S_ITS ---
PROCEDURE: PAIN L/S FACET INJ/BLK 1ST MARK INDICATIONS: FACET ARTHROPATHY COMPARISON: [facility], , PAIN L/S FACET INJ/BLK 1ST MARK, 07/31/2022, 9:19. FINDINGS: Fluoroscopic spot filming was performed to verify placement of spinal needles at the bilateral L4, L5, S1 level(s), as labeled on the films. Appropriate location(s) of the needle tip(s) was confirmed by injection of iodinated contrast. IMPRESSION: Intraoperative guidance provided. Dictated by: Shiv Purvis M.D. on 12/17/2023 at 11:25 Approved by: Shiv Purvis M.D. on 12/17/2023 at 11:27
[2023-12-17] MEDS: MIDAZOLAM 2 MG/2 ML VIAL IV (09:41)
[2023-12-17] MEDS: LIDOCAINE 2% INJ MDV 20ML 5 ML INJ (09:44)
[2023-12-17] MEDS: iopamidoL 15 ML VIAL 3 ML INJ (09:44)
[2023-12-17] MEDS: LIDOCAINE 1% 20 ML 5 ML INJ (09:45)
--- NOTE | 2023-12-17 09:58 | P.PCN_ITS ---
Date/Time/Diagnoses Date of procedure: 12/17/23 Time of procedure: 09:58 Pre-procedure diagnosis: 1. FACET ARTHROPATHY Post-procedure diagnosis: same Procedure Notes Procedure: 1. BILATERAL L3, L4 AND L5 DIAGNOSTIC MB BLOCKS Indications: Anam is referred by Dr. Mallory for treatment of Bilateral Axial LBP. Physician: Vu Thorpe Total Fluoroscopy time (seconds): 10 Total sedation minutes: 12 Complications: none Procedure in detail & Post-procedure care: DESCRIPTION OF PROCEDURE Fluoroscopically guided, contrast-controlled bilateral L3, L4 AND L5 medial branch blocks with 0.5cc of 2% Lidocaine. Following review of allergy and review of potential side effects and complications, including, but not necessarily limited to, infection, allergic reaction, local tissue breakdown, nerve injury, paralysis, stroke and possible , the patient indicated that the patient understood and agreed to proceed. An informed consent document was signed by the patient, witnessed by a nurse, and placed in the patient's chart. After review of previous anaesthesic history and IV conscious sedation the patient was deemed safe to proceed with today's procedure with IV conscious sedation as ASA class II designation. Safety time-out was performed to confirm patient ID, procedure to be performed and site of procedure. IV sedation was accomplished with a combination of 2mg of Versed was administered by the RN after DO order, titrated to patient comfort during the course of the procedure while the patient remained responsive to all verbal commands In the prone position, following sterile prep and drape of the lumbar region, the right L3, L4 AND L5 anatomical location of the medial branch of the dorsal ramus was identified fluoroscopically. Subsequently an anesthetic skin wheal using 1% lidocaine solution was initiated at each of the anatomical spots. Subsequently then a 22-gauge 3.5-inch spinal needle was atraumatically introduced and advanced under fluoroscopic guidance at each of the corresponding sites at the right L3, L4 and L5 MB. After negative aspiration, 0.2cc of Isovue 200 was injected, confirming placement without vascular or intrathecal uptake. Subsequently then 0.5cc of 2% Lidocaine solution was injected at each of the corresponding sites at the right L3, L4 and L5 medial branch locations. The identical procedure was replicated on the left. The patient tolerated the proce dure well without signs or symptoms of complications. The patient tolerated the procedure well without signs or symptoms of complications prior to transfer to the recovery area continued monitoring without incident. Post-procedure, the patient was monitored initiating provocative activities to measure the amount of relief from block of the facetogenic pain. The patient reported a VAS of 7 prior to the procedure and a post-procedure VAS of 1. It has been a pleasure to assist in the diagnostic and therapeutic care of your patient. POST OP INSTRUCTIONS The patient was provided with a Pain Log to complete over the next several hours and subsequent days prior to the patient's follow up with the ordering physician. 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 The patient is aware, was provided, once again, with a Pain Log and will follow up with the referring physician for review and clinical correlation
== END 2023-12-17 10:13 | disposition home or self-care (01) ==
LOC: RAD 08:23
PROVIDERS: Family Provider Family Medicine; PCP Family Medicine; Referring Provider Physical Medicine & Rehabilitation; Visit Provider Physical Medicine & Rehabilitation
DX: M47.816 Spondylosis without myelopathy or radiculopathy, lumbar region (principal)
CPT/HCPCS: 64493; 64494; 99152; J2250

== ENCOUNTER 2024-07-07 10:26 | Outpatient (CLI) | payer OTHER, SELFPAY ==
[2024-07-07] VITALS (16 sets, daily range): BP systolic 68–147; BP diastolic 46–95; PULSE 16–74; RESP 11–20; TEMP 37; O2SAT 96–100
--- NOTE | 2024-07-07 11:00 | DI.RAD.S_ITS ---
PROCEDURE: PAIN L/S MED/LAT N RFA BILAT INDICATIONS: bilateral L3-L4 and L5 medial branch RFA COMPARISON: None. FINDINGS: Fluoroscopic spot filming was performed to verify placement of spinal needles at the L3, L4 and L5 level(s), as labeled on the films. Appropriate location(s) of the needle tip(s) was confirmed by injection of iodinated contrast. IMPRESSION: Fluoro guidance was provided intraoperatively for bilateral L3 through L5 medial branch RFA performed by ordering physician. Dictated by: Sylvester Christensen M.D. on 07/07/2024 at 16:43 Approved by: Sylvester Christensen M.D. on 07/07/2024 at 16:46
[2024-07-07] MEDS: MIDAZOLAM 2 MG/2 ML VIAL 1 MG IV (11:25)
[2024-07-07] MEDS: fentaNYL 100 MCG/2 ML INJ 50 MCG IV (11:27)
[2024-07-07] MEDS: LIDOCAINE 1% 20 ML 5 ML INJ (11:45)
[2024-07-07] MEDS: BUPIVACAINE 0.5% (PF) 10 ML VIAL 5 ML INJ (11:45)
[2024-07-07] MEDS: SODIUM CHLORIDE 0.9% 500 ML 1000 ML IV (11:48)
--- NOTE | 2024-07-07 12:35 | P.PCN_ITS ---
Date/Time/Diagnoses Date of procedure: 07/07/24 Time of procedure: 12:35 Pre-procedure diagnosis: 1. RECALCITRANT FACET ARTHROPATHY Post-procedure diagnosis: same Procedure Notes Procedure: 1. BILATERAL L3, L4 AND L5 MEDIAL BRANCH RADIOFREQUENCY NEUROTOMY Indications: Anam is referred by Dr. Mallory for treatment of facet arthropathy. Physician: Vu Thorpe Total Fluoroscopy time (seconds): 23 Total sedation minutes: 60 Complications: none Procedure in detail & Post-procedure care: DESCRIPTION OF PROCEDURE Bilateral L3, L4 and L5 medial branch radiofrequency neurotomy The patient is well known to this clinic having undergone previous facet injections with good but temporary relief. The patient has experienced appropriate, concordant relief with previous facet and median branch blocks but the patient's pain has been recalcitrant to further conservative measures. Therefore, based upon the patient's relief and persistent symptoms, the patient is considered an appropriate candidate for facet rhizotomy. All of the patient's questions regarding the risks versus benefits of the procedure, including, but not limited to, bleeding, infection, temporary as well as lasting nerve injury, paralysis, stroke, and , as well treatment alternatives were answered to satisfaction. After obtaining informed consent, denial of pertinent drug allergies, as well as being made aware of the potential risks of bleeding, infection, spinal cord trauma, paralysis, temporary and permanent nerve damage, seizure, stroke, and possible , the patient was brought to the fluoroscopy suite and positioned prone on the fluoroscopy table. After review of previous anaesthesic history and IV conscious sedation the patient was deemed safe to proceed with today's procedure with IV conscious sedation as ASA class II designation. Safety time-out was performed to confirm patient ID, procedure to be performed and site of procedure. IV sedation was accomplished with a combination of 1mg of Versed and 50mcg of Fentanyl administered by the RN after DO order, titrated to patient comfort during the course of the procedure while the patient remained responsive to all verbal commands. The lumbar region was prepped in usual sterile fashion and covered with a fenestrated drape in the usual sterile fashion. Appropriate monitors applied including pulse oximeter, pulse, and blood pressure for regular monitoring throughout the procedure. After local infiltration using 1% lidocaine, under fluoroscopic guidance, a 10- cm RF insulated needle with a 10-mm active tip was positioned parallel to the junction of the right the superior articulating process where the L5 medial branch resides. Needle placement was confirmed with motor stimulation of .5v on the right which produced local stimulation without radicular component. The stimulation was then increased to 2v with, once again, only local multifidus stimulation without radicular component. The needle was then removed and the identical procedure was performed along the length of the right L4 medial branch with motor stimulation at .7v on the right. The identical procedure was once again performed along the length of the right L3 and medial branch with motor stimulation of .5v on the right. The medial branches were then anesthetised with 0.5% marcaine. This was then followed by two discreet lesions performed at 80 degrees Celsius for 90 seconds each. The identical procedures were repeated on the left. The patient tolerated the procedure well without signs or symptoms of complications prior to transfer to the recovery area continued monitoring without incident. The patient was then transferred to the recovery area where they were observed for an appropriate period of time after the injection. The patient reported a VAS score of 8 prior to the procedure and a post-procedure VAS of 1. POST OP INSTRUCTIONS The patient was provided a Pain Log to continue to record the patient's response to the target-specific procedure prior to the patient's follow-up visit with the referring physician. Additionally, specific post-injection care instructions and a contact number to our office were provided if concerns arise regarding possible complications associated with the procedure are suspected.
== END 2024-07-07 12:46 | disposition home or self-care (01) ==
LOC: RAD 10:28
PROVIDERS: Family Provider Family Medicine; PCP Family Medicine; Referring Provider Physical Medicine & Rehabilitation; Visit Provider Physical Medicine & Rehabilitation
DX: M47.816 Spondylosis without myelopathy or radiculopathy, lumbar region (principal)
CPT/HCPCS: 64635; 64636; 99152; 99153; J2250; J3010